=== PATIENT | male | born 1970 | race Caucasian/White ===

== ENCOUNTER 2020-10-31 10:50 | Outpatient (REF) | payer MEDICAID, SELFPAY ==
[2020-10-31 12:55] LABS: MANUAL DIFF FLAG NO
[2020-10-31 12:57] LABS: Basophils Percent Auto 0.5 % (0-2); Eosinophils Absolute Auto 0.1 X10*3/uL (0.0-0.4); Eosinophils Percent Auto 1.6 % (0-4); Hematocrit 48.3 % (42-52); Hemoglobin 16.7 g/dl (14.0-18.0); Imm Gran Abs Auto 0.02 X10*3/uL (0.00-0.03); Imm Gran Pct Auto 0.4 % (0.0-0.4); Lymphocytes Absolute Auto 1.4 X10*3/uL (1.2-4.9); Lymphocytes Percent Auto 24.5 % (20-40); Mean Corpuscular HGB Conc 34.6 g/dl (31.0-36.0); Mean Corpuscular Hemoglobin 28.6 pg (27.0-33.0); Mean Corpuscular Volume 82.7 fL (80-98); Mean Platelet Volume 11.5 fL (9.4-12.4); Monocytes Absolute Auto 0.6 X10*3/uL (0.1-1.2); Monocytes Percent Auto 10.4 % (2-11); Neutrophils Absolute Auto 3.5 X10*3/uL (2.0-8.3); Neutrophils Percent Auto 62.6 % (45-73); Platelet Count 266 X10*3/uL (160-400); Red Blood Count 5.84 X10*6/uL (4.60-5.80); Red Cell Distribution Width 13.1 % (11.0-16.0); White Blood Count 5.6 X10*3/uL (4.8-10.8)
[2020-10-31 14:04] LABS: Carbon Dioxide 26 mmol/L (22-29); Chloride 104 mmol/L (96-108); Potassium 4.7 mmol/L (3.3-5.1); Sodium 141 mmol/L (135-145)
[2020-10-31 14:05] LABS: Alanine Aminotransferase 85 U/L (0-40); Albumin Level 4.6 g/dL (3.5-5.0); Alkaline Phosphatase 65 U/L (39-117); Anion Gap 16 (12-20); Aspartate Amino Transferase 44 U/L (5-37); Bilirubin Total 0.6 mg/dL (0.0-1.0); Blood Urea Nitrogen 17 mg/dL (9-16); Calcium 9.7 mg/dL (8.4-10.2); Estimated Glomerular Filt Rate > 60; Glucose Fasting 101 mg/dL (60-99); Total Protein 7.1 g/dL (6.5-8.0)
[2020-10-31 14:25] LABS: Free T4 (Free Thyroxine) 0.97 ng/dL (0.71-1.85); Thyroid Stimulating Hormone 1.92 uIU/mL (0.32-4.0)
== END 2020-10-31 10:51 | disposition home or self-care (01) ==
LOC: HO.MANLDS 10:50
PROVIDERS: PCP Internal Medicine; Visit Provider Internal Medicine
DX: R60.0 Localized edema (principal)
CPT/HCPCS: 36415; 80053; 84439; 84443; 85025

== ENCOUNTER 2021-06-20 09:52 | Outpatient (REF) | payer MEDICAID, SELFPAY ==
[2021-06-20 11:04] LABS: Hematocrit 48.7 % (42.0-52.0); Hemoglobin 16.5 g/dl (14.0-18.0); Mean Corpuscular HGB Conc 33.9 g/dl (31.0-36.0); Mean Corpuscular Hemoglobin 27.9 pg (27.0-33.0); Mean Corpuscular Volume 82.4 fL (80.0-98.0); Mean Platelet Volume 11.3 fL (9.4-12.4); Platelet Count 249 X10*3/uL (160-400); Red Blood Count 5.91 X10*6/uL (4.60-5.80); Red Cell Distribution Width 13.1 % (11.0-16.0); White Blood Count 6.1 X10*3/uL (4.8-10.8)
[2021-06-20 11:27] LABS: Alanine Aminotransferase 58 U/L (0-40); Albumin Level 4.4 g/dL (3.5-5.0); Alkaline Phosphatase 71 U/L (39-117); Anion Gap 10 (12-20); Aspartate Amino Transferase 36 U/L (5-37); Bilirubin Total 0.8 mg/dL (0.0-1.0); Blood Urea Nitrogen 15 mg/dL (9-16); Calcium 9.5 mg/dL (8.4-10.2); Carbon Dioxide 31 mmol/L (22-29); Chloride 104 mmol/L (96-108); Cholesterol 231 mg/dL; Estimated Glomerular Filt Rate > 60; Glucose Fasting 103 mg/dL (60-99); HDL Cholesterol 32 mg/dL; LDL Cholesterol Calculated 165 mg/dl; Potassium 4.4 mmol/L (3.3-5.1); Sodium 141 mmol/L (135-145); Triglycerides 171 mg/dL
[2021-06-20 11:48] LABS: Prostate Specific Antigen 0.51 ng/mL (<0.05-4.0); Vitamin D 25-OH Total 18.4 ng/mL (>30)
== END 2021-06-20 09:53 | disposition home or self-care (01) ==
LOC: HO.MANLDS 09:52
PROVIDERS: PCP Internal Medicine; Visit Provider Internal Medicine
DX: Z12.5 Encounter for screening for malignant neoplasm of prostate (principal); I10 Essential (primary) hypertension
CPT/HCPCS: 36415; 80053; 80061; 82306; 84153; 85027

== ENCOUNTER 2022-12-04 09:57 | Outpatient (REF) | payer MEDICAID, SELFPAY ==
[2022-12-04 11:55] LABS: Estimated Average Glucose 100 mg/dL; Hemoglobin A1c % 5.1 %
[2022-12-04 13:40] LABS: Alanine Aminotransferase 45 U/L (0-40); Albumin Level 4.6 g/dL (3.5-5.0); Alkaline Phosphatase 61 U/L (39-117); Anion Gap 13 (12-20); Aspartate Amino Transferase 35 U/L (5-37); Bilirubin Total 0.9 mg/dL (0.0-1.0); Blood Urea Nitrogen 14 mg/dL (9-16); Calcium 9.7 mg/dL (8.4-10.2); Carbon Dioxide 27 mmol/L (22-29); Chloride 106 mmol/L (96-108); Cholesterol 262 mg/dL; Estimated Glomerular Filt Rate > 60; Glucose Random 91 mg/dL (60-115); HDL Cholesterol 40 mg/dL; LDL Cholesterol Calculated 188 mg/dl; Potassium 4.5 mmol/L (3.3-5.1); Sodium 141 mmol/L (135-145); Total Protein 7.1 g/dL (6.5-8.0); Triglycerides 172 mg/dL
[2022-12-04 13:56] LABS: Prostate Specific Antigen 0.56 ng/mL (<0.05-4.0)
== END 2022-12-04 09:58 | disposition home or self-care (01) ==
LOC: HO.MANLDS 09:57
PROVIDERS: Visit Provider Internal Medicine
DX: Z12.5 Encounter for screening for malignant neoplasm of prostate (principal); E78.2 Mixed hyperlipidemia; R73.01 Impaired fasting glucose
CPT/HCPCS: 36415; 80053; 80061; 83036; 84153

== ENCOUNTER 2024-09-29 18:07 | Emergency (ER) | payer MEDICAID, SELFPAY ==
--- NOTE | ~2024-09-29 | CT_ITS ---
CLINICAL HISTORY: LLQ pain, N V, hematochezia CT abdomen and pelvis with contrast Comparison: None Findings: No consolidation of the imaged bases. Steatotic change of the liver. The gallbladder is unremarkable for CT. Mild splenomegaly. The adrenal glands are normal. Pancreas is unremarkable. Multiple cystic lesions in the kidneys are too small to characterize. No hydronephrosis. Nonobstructing nephrolithiasis of the right kidney measures 6 mm. Small mesenteric and periaortic lymph nodes are nonspecific and likely reactive. No small bowel obstruction. Moderate to severe stool burden is present, including the cecum. Abrupt change in caliber about the junction of the sigmoid in the descending colon are nonspecific. Wall thickening of the distal sigmoid colon and rectum concerning for colitis and proctitis. Imaged appendix is within normal limits. No free intraperitoneal air. No drainable abscess by CT. Prostate gland is unremarkable for CT. Mild distention of the urinary bladder. Degenerative changes include the hips, SI joints, and spine with multifocal facet arthropathy. Limbus vertebrae of the L3. Vacuum disc phenomenon at L4-L5. Multiple hemangiomas including imaged thoracolumbar junction. IMPRESSION: 1. Nonobstructing nephrolithiasis of the right kidney. 2. Wall thickening of the distal large intestine concerning for distal colitis and proctitis. 3. No small bowel obstruction. This document has been electronically signed by: Casper Torres MD on 09/30/2024 00:30:35
--- NOTE | 2024-09-29 18:21 | ED.GENADULT ---
HPI - General Adult General Chief complaint: Abdominal Pain Stated complaint: L side abd pain, bloody stool Time Seen by Provider: 09/29/24 22:47 Source: patient Mode of arrival: ambulatory Limitations: no limitations History of Present Illness ED Provider: Rox Martinez NP HPI narrative: Patient is a 53-year-old male with past medical history of GERD who presents emergency department for evaluation. He reports he was out running errands today when he developed sudden onset of left lower quadrant abdominal pain. He reports that he went home afterwards tried to lie down but the pain continued. He went to the bathroom and reports that he had bright red blood from his rectum as well as mucus but denies any actual stool from the rectum. He denies any history of similar symptoms in the past. He denies use of anticoagulants. He states that he had a colonoscopy 2 years ago which was normal, he believes that there may be a cousin in the family with history of colon cancer. Additionally does state that he had a mechanical slip and fall on the ice a few days ago, he fell landing onto his left buttock. He denies having any pain afterwards in the back, hip, or even the abdomen. Is ambulatory with a steady gait, full range of motion to the hip. Related Data Previous Rx's ?Medication ?Instructions ?Recorded amoxicillin 875 mg-potassium 1 tab PO Q12H 7 days #14 tabs 09/30/24 clavulanate 125 mg tablet metronidazole 500 mg tablet 500 mg PO TID 7 days #21 tabs 09/30/24 morphine 15 mg immediate release 15 mg PO Q6H PRN pain #14 tabs 09/30/24 tablet Allergies Allergy/AdvReac Type Severity Reaction Status Date / Time No Known Allergies Allergy Verified 09/29/24 18:27 Review of Systems Review of Systems: Yes all other systems are reviewed and are negative PMFSH Past Medical History Attestation statement: The following information was validated with the patient. Source: old records reviewed Physical Exam ED Vital Signs: Vital Signs - 24 hr 09/29/24 18:22 09/29/24 23:42 09/30/24 01:10 Temperature 98.1 F 98.4 F 97.5 F Pulse Rate 88 73 72 Respiratory Rate 18 20 16 Blood Pressure 153/111 H 144/91 H 133/78 Pulse Oximetry 96 96 98 Oxygen Delivery Method Room Air Room Air Room Air 09/30/24 02:55 09/30/24 03:17 Temperature 97.7 F 97.7 F Pulse Rate 71 71 Respiratory Rate 16 16 Blood Pressure 134/81 134/81 Pulse Oximetry 95 95 Oxygen Delivery Method Room Air Room Air BMI result Body Mass Index 35.4 Appearance: Alert.?Oriented to person, place and time. No acute distress.?Normal affect.?? Neck: Normal inspection.? Neck supple.?? CVS: Heart sounds normal. Normal heart rate and rhythm.? Pulses normal.?? Respiratory: No respiratory distress.? Lung sounds clear to auscultation bilaterally?? Abdomen: Soft and non-tender. No rebound tenderness at McBurney's point. Negative psoas sign. Negative Rovsing sign. Negative Harris sign. No CVAT. Normoactive bowel sounds. No pulsatile mass.?? Skin: Skin warm and dry.? Normal skin color.? Extremities: No lower extremity edema.? Neuro: Moves all extremities spontaneously. Sensation intact bilaterally. Ambulates with normal steady gait. Course Course Course Narrative: RME, this is a rapid medical exam performed by Gil Wilson please refer to primary provider for complete H&P- 53 year old male presents for evaluation of left sided abdominal pain and bright red blood per rectum. Reports a history of hemorrhoids. He is not anticoagulated. Plan for labs Reevaluation(s) Reevaluation #1: Patient signed out to ED attending Dr. Goodman pending CT of the abdomen and pelvis Medications Administered Discontinued Medications Generic Name Dose Route Start Last Admin Trade Name Freq PRN Reason Stop Dose Admin Amoxicillin/Clavulanate Potassium 875 mg 09/30/24 02:40 09/30/24 03:08 Amoxicillin/Potassium Clav 875 Mg Tablet PO 09/30/24 02:41 875 mg ONCE ONE Administration Sodium Chloride 1,000 mls @ 999 mls/hr 09/29/24 23:15 09/30/24 00:30 Ns IV 09/30/24 00:15 Infused .Q1H1M RICCARDO Infusion Iohexol 85 ml 09/29/24 23:55 09/29/24 23:56 Iohexol 350 Mg/Ml 100 Ml Infus..Btl IV 09/29/24 23:56 85 ml ONCE ONE Administration Metronidazole 500 mg 09/30/24 02:40 09/30/24 03:08 Metronidazole 500 Mg Tablet PO 09/30/24 02:41 500 mg ONCE ONE Administration Morphine Sulfate 4 mg 09/30/24 02:40 09/30/24 03:00 Morphine Sulfate 4 Mg/Ml Cartridge IVPUSH 09/30/24 02:41 4 mg ONCE STA Administration Protocol Medical Decision Making Medical Decision Making [facility] Narrative: Patient is a 53-year-old male past medical history of GERD who presents emergency department for evaluation of left lower quadrant abdominal pain and bright red blood per rectum with mucus but no reported stool as per HPI. Denies use of anticoagulants. On my evaluation he does have some external hemorrhoids without active bleeding non thrombosed, exam was performed with ED RN Margo at bedside. Digital rectal examination is without evidence of bright red blood within the rectum, no palpable masses. He has mild left lower quadrant tenderness upon palpation. Obtaining CT of the abdomen and pelvis with IV contrast to evaluate further for possible diverticulitis, lower GIB, blunt injury from recent fall, occult stool has been sent. Reviewed serum labs obtained prior to my assumption of care; CBC is without leukocytosis, anemia, or thrombocytopenia, normal coags, no significant electrolyte derangement, no CONNOR. Minimally elevated AST/ALT 40/50 respectively he benign upper abdominal examination, normal lipase. Viral serologies are negative. 09/30/2024 at 02:41 hours, Dr. Graham Goodman's note: I assumed care of this patient from my colleague, nurse practitioner Rox Martinez at 02:00 hours pending the patient's CT scan of the abdomen pelvis IV contrast. CT scan did reveal descending colitis and proctitis. Patient also has an incidental right kidney stone. 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 I ordered morphine 4 mg IV for his pain, Augmentin 875/125 orally and Flagyl 500 mg orally. Patient was discharged home with prescription for Augmentin 875/125 q.12 hours x7 days, metronidazole 500 mg q.12 hours x7 days. He was advised to take Tylenol for pain and for pain not relieved by Tylenol he was prescribed morphine 15 mg every 6 hours as needed for pain. He was given printed and verbal instructions and discharged home. Differential Diagnosis Differential Diagnoses: The differential diagnosis associated with the presentation includes (See narrative above) Admission/Observation Consideration of admission/observation: Escalation of care including admission/observation considered (See narrative above ) Lab Data MDM Lab Attestation statement: I reviewed the patient's lab results. 09/29/24 20:10 09/29/24 20:11 Labs: Lab Results 09/29/24 09/29/24 09/29/24 Range/Units 20:10 20:11 23:32 WBC 7.0 (4.8-10.8) X10*3/uL RBC 5.83 H (4.60-5.80) X10*6/uL Hgb 16.5 (14.0-18.0) g/dl Hct 48.2 (42.0-52.0) % MCV 82.7 (80.0-98.0) fL MCH 28.3 (27.0-33.0) pg MCHC 34.2 (31.0-36.0) g/dl RDW 12.6 (11.0-16.0) % Plt Count 227 (160-400) X10*3/uL MPV 10.2 (9.4-12.4) fL Immature Gran % (Auto) 0.3 (0.0-0.4) % Neut % (Auto) 72.1 (45-73) % Lymph % (Auto) 20.4 (20-40) % Warrick % (Auto) 5.8 (2-11) % Eos % (Auto) 1.1 (0-4) % Baso % (Auto) 0.3 (0-2) % Lymph # (Auto) 1.4 (1.2-4.9) X10*3/uL Warrick # (Auto) 0.4 (0.1-1.2) X10*3/uL Eos # (Auto) 0.1 (0.0-0.4) X10*3/uL Baso # (Auto) 0.0 (0.0-0.2) X10*3/uL Abs Immat Gran (auto) 0.02 (0.00-0.03) X10*3/uL Absolute Neuts (auto) 5.1 (2.0-8.3) x10*3/uL Absolute Nucleated RBC 0.000 (0.0-0.012) X10*3/uL Nucleated RBC % (auto) 0.0 (0.0-0.2) /100WBC PT 11.5 (10.9-12.4) SEC INR 1.0 (0.9-1.1) Sodium 140 (135-145) mmol/L Potassium 4.2 (3.3-5.1) mmol/L Chloride 109 H (96-108) mmol/L Carbon Dioxide 23 (22-29) mmol/L Anion Gap 12 (12-20) BUN 14 (9-16) mg/dL Creatinine 0.91 (0.5-1.4) mg/dL Estim Creat Clear Calc 104.9 Estimated GFR > 60 Random Glucose 87 (60-115) mg/dL Calcium 9.1 D (8.4-10.2) mg/dL Total Bilirubin 0.4 (0.0-1.0) mg/dL AST 40 H (5-37) U/L ALT 50 H (0-40) U/L Alkaline Phosphatase 66 (39-117) U/L Total Protein 7.6 (6.5-8.0) g/dL Albumin 4.4 (3.5-5.0) g/dL Lipase 30 (8-78) U/L Stool Occult Blood NEGATIVE (NEGATIVE) Influenza Type A (PCR) NEGATIVE (Negative) Influenza Type B (PCR) NEGATIVE (Negative) RSV RNA Qual (PCR) NEGATIVE (Negative) SARS-CoV-2 RNA (RT-PCR) NEGATIVE (Negative) Radiology Impression Discussion of test interpretation with radiology: I have reviewed the radiologist's reading. Radiologist Impression: CT abdomen and pelvis with contrast Comparison: None Findings: No consolidation of the imaged bases. Steatotic change of the liver. The gallbladder is unremarkable for CT. Mild splenomegaly. The adrenal glands are normal. Pancreas is unremarkable. Multiple cystic lesions in the kidneys are too small to characterize. No hydronephrosis. Nonobstructing nephrolithiasis of the right kidney measures 6 mm. Small mesenteric and periaortic lymph nodes are nonspecific and likely reactive. No small bowel obstruction. Moderate to severe stool burden is present, including the cecum. Abrupt change in caliber about the junction of the sigmoid in the descending colon are nonspecific. Wall thickening of the distal sigmoid colon and rectum concerning for colitis and proctitis. Imaged appendix is within normal limits. No free intraperitoneal air. No drainable abscess by CT. Prostate gland is unremarkable for CT. Mild distention of the urinary bladder. Degenerative changes include the hips, SI joints, and spine with multifocal facet arthropathy. Limbus vertebrae of the L3. Vacuum disc phenomenon at L4-L5. Multiple hemangiomas including imaged thoracolumbar junction. IMPRESSION: 1. Nonobstructing nephrolithiasis of the right kidney. 2. Wall thickening of the distal large intestine concerning for distal colitis and proctitis. 3. No small bowel obstruction. This document has been electronically signed by: Casper Torres MD on 09/30/2024 00:30:35 Independent Historian Clinical information obtained from an independent historian. History obtained from or confirmed by: Spouse External Record Review External record reviewed: Outpatient record Discharge Plan Discharge Clinical Impression: Acute proctitis, Acute colitis Patient Disposition: Home, Self-Care Instructions: Proctitis (ED), Colitis (ED) Additional Instructions: Your blood work was unremarkable. The CT scan of your abdomen pelvis revealed colitis and proctitis which he was consistent with your symptoms. Take Augmentin (amoxicillin/clavulanate) 875/125, 1 pill every 12 hours for 7 days Take Flagyl (metronidazole) 500 mg pills, 1 pill every 3 times a day for 7 days. Take Tylenol (acetaminophen) 2 pills every 6 hours as needed for pain. For pain not relieved by Tylenol take morphine 15 mg pills, 1 pill every 6 hours as needed for pain. This medication will make you sleepy, do not drive or work while taking this medication. Morphine is a narcotic medication and can be addicting. If you are concerned about addiction you can ask the pharmacist for less pills or do not get this prescription filled. Follow-up with your doctor in 2 days. Please return to the emergency department if your symptoms get worse or if you develop any symptoms that are concerning to you. You will need a colonoscopy once ER proctitis and colitis resolves, this probably should be done in 4-6 weeks in you can discuss this with your interior plant caretaker that is going to do your upper endoscopy. I cut and paste the radiology reading at the end of this discharge instruction in you can show this to your interior plant caretaker. CT scan also revealed a right-sided kidney stone which is not causing any problems at this time but may and gave you pain in the future. CT abdomen and pelvis with contrast Comparison: None Findings: No consolidation of the imaged bases. Steatotic change of the liver. The gallbladder is unremarkable for CT. Mild splenomegaly. The adrenal glands are normal. Pancreas is unremarkable. Multiple cystic lesions in the kidneys are too small to characterize. No hydronephrosis. Nonobstructing nephrolithiasis of the right kidney measures 6 mm. Small mesenteric and periaortic lymph nodes are nonspecific and likely reactive. No small bowel obstruction. Moderate to severe stool burden is present, including the cecum. Abrupt change in caliber about the junction of the sigmoid in the descending colon are nonspecific. Wall thickening of the distal sigmoid colon and rectum concerning for colitis and proctitis. Imaged appendix is within normal limits. No free intraperitoneal air. No drainable abscess by CT. Prostate gland is unremarkable for CT. Mild distention of the urinary bladder. Degenerative changes include the hips, SI joints, and spine with multifocal facet arthropathy. Limbus vertebrae of the L3. Vacuum disc phenomenon at L4-L5. Multiple hemangiomas including imaged thoracolumbar junction. IMPRESSION: 1. Nonobstructing nephrolithiasis of the right kidney. 2. Wall thickening of the distal large intestine concerning for distal colitis and proctitis. 3. No small bowel obstruction. This document has been electronically signed by: Casper Torres MD on 09/30/2024 00:30:35 Prescriptions: New metronidazole 500 mg tablet 500 mg PO TID 7 Days Qty: 21 0RF morphine 15 mg tablet 15 mg PO Q6H PRN (Reason: pain) Qty: 14 0RF Rx Instructions: Patient may request partial fill; Partial Fill upon patient request. amoxicillin-pot clavulanate 875-125 mg tablet 1 tab PO Q12H 7 Days Qty: 14 0RF Interventions: ED Discharge Assessment Last Done: 09/30/24 03:17 Discharge Date/Time: 09/30/24 03:17 Print Language: Macanese
[2024-09-29 18:22] VITALS: BP 153/111; PULSE 88; RESP 18; TEMP 36.7; O2SAT 96; BMI 35.4
[2024-09-29 20:15] LABS: MANUAL DIFF FLAG NO
[2024-09-29 20:17] LABS: Basophils Percent Auto 0.3 % (0-2); Eosinophils Absolute Auto 0.1 X10*3/uL (0.0-0.4); Eosinophils Percent Auto 1.1 % (0-4); Hematocrit 48.2 % (42.0-52.0); Hemoglobin 16.5 g/dl (14.0-18.0); Imm Gran Abs Auto 0.02 X10*3/uL (0.00-0.03); Imm Gran Pct Auto 0.3 % (0.0-0.4); Lymphocytes Absolute Auto 1.4 X10*3/uL (1.2-4.9); Lymphocytes Percent Auto 20.4 % (20-40); Mean Corpuscular HGB Conc 34.2 g/dl (31.0-36.0); Mean Corpuscular Hemoglobin 28.3 pg (27.0-33.0); Mean Corpuscular Volume 82.7 fL (80.0-98.0); Mean Platelet Volume 10.2 fL (9.4-12.4); Monocytes Absolute Auto 0.4 X10*3/uL (0.1-1.2); Monocytes Percent Auto 5.8 % (2-11); Neutrophils Absolute Auto 5.1 x10*3/uL (2.0-8.3); Neutrophils Percent Auto 72.1 % (45-73); Platelet Count 227 X10*3/uL (160-400); Red Blood Count 5.83 X10*6/uL (4.60-5.80); Red Cell Distribution Width 12.6 % (11.0-16.0)
[2024-09-29 20:24] LABS: Prothrombin Time 11.5 SEC (10.9-12.4)
[2024-09-29 20:35] LABS: Alanine Aminotransferase 50 U/L (0-40); Albumin Level 4.4 g/dL (3.5-5.0); Alkaline Phosphatase 66 U/L (39-117); Anion Gap 12 (12-20); Aspartate Amino Transferase 40 U/L (5-37); Bilirubin Total 0.4 mg/dL (0.0-1.0); Blood Urea Nitrogen 14 mg/dL (9-16); Calcium 9.1 mg/dL (8.4-10.2); Carbon Dioxide 23 mmol/L (22-29); Chloride 109 mmol/L (96-108); Creatinine Clr Calc Pharmacy 104.9; Estimated Glomerular Filt Rate > 60; Glucose Random 87 mg/dL (60-115); Lipase 30 U/L (8-78); Potassium 4.2 mmol/L (3.3-5.1); Sodium 140 mmol/L (135-145); Total Protein 7.6 g/dL (6.5-8.0)
[2024-09-29 20:55] LABS: Influenza A PCR NEGATIVE (Negative); Influenza B PCR NEGATIVE (Negative); Resp Syncy Virus RNA Qual PCR NEGATIVE (Negative); SARS COV2 PCR INHOUSE NEGATIVE (Negative)
[2024-09-29] MEDS: 0.9 % Sodium Chloride 1,000 ML 999 ML IV (23:29)
[2024-09-29 23:37] LABS: OBS Int Ctl Valid YES; OBS1 NEGATIVE (NEGATIVE)
[2024-09-29 23:42] VITALS: BP 144/91; PULSE 73; RESP 20; TEMP 36.9; O2SAT 96
[2024-09-29] MEDS: iohexoL 350 MG/ML 100 ML INFUS..BTL 85 ML IV (23:56)
[2024-09-30 01:10] VITALS: BP 133/78; PULSE 72; RESP 16; TEMP 36.4; O2SAT 98
[2024-09-30 02:55] VITALS: BP 134/81; PULSE 71; RESP 16; TEMP 36.5; O2SAT 95
[2024-09-30] MEDS: Morphine Sulfate 4 MG/ML CARTRIDGE IVPUSH (03:00)
[2024-09-30] MEDS: metroNIDAZOLE 500 MG TABLET PO (03:08)
[2024-09-30] MEDS: Amoxicillin/Potassium Clav 875 MG TABLET PO (03:08)
[2024-09-30 03:17] VITALS: BP 134/81; PULSE 71; RESP 16; TEMP 36.5; O2SAT 95
== END 2024-09-30 03:17 | disposition home or self-care (01) ==
PROVIDERS: Nurse Practitioner Family; Physician Assistant; Emergency Provider Emergency Medicine Emergency Medical Services; PCP Internal Medicine
DX: K52.9 Noninfective gastroenteritis and colitis, unspecified (principal); K62.89 Other specified diseases of anus and rectum; N20.0 Calculus of kidney; R10.32 Left lower quadrant pain; K62.5 Hemorrhage of anus and rectum; Z03.818 Encounter for observation for suspected exposure to other biological agents ruled out
CPT/HCPCS: 0241U; 74177; 80053; 82272; 83690; 85025; 85610; 96361; 96374; 99283; 99284; J2270; Q9967

== ENCOUNTER → 2024-09-29 23:05 | Outpatient (BNV) | payer MEDICAID, SELFPAY | PROVIDERS: Emergency Provider Emergency Medicine Emergency Medical Services; PCP Internal Medicine; Visit Provider Radiology Neuroradiology | DX: R10.32 Left lower quadrant pain (principal); R11.2 Nausea with vomiting, unspecified; K62.5 Hemorrhage of anus and rectum | CPT/HCPCS: 74177 ==

== ENCOUNTER 2025-02-08 09:34 | Outpatient (REF) | payer MEDICAID, SELFPAY ==
--- OUTSIDE RECORDS SUMMARY | 2025-02-08 10:19 | XMS_ITS | Data Portability ---
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 REVIEW OF PRIOR EXTERNAL NOTES/RESULTS, ORDERING OF TEST(S) CATEGORY 2. 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) MDM MODERATE MUST MEET 2 OUT OF 3 ELEMENTS: PROBLEMS, DATA OR RISK ELEMENT 1: PROBLEMS ADDRESSED 1 OR MORE CHRONIC ILLNESS WITH EXACERBATION OR 2 OR MORE STABLE CHRONIC ILLNESSES OR 1 UNDIAGNOSED NEW PROBLEM OR 1 ACUTE ILLNESS W/SYMPTOMS OR 1 ACUTE COMPLICATED INJURY ELEMENT 2: DATA MUST MEET 1 OF 3 CATEGORIES CATEGORY 1: REVIEW OF PRIOR EXTERNAL NOTES, REVIEW OF RESULTS, ORDERING OF EACH TEST, ASSESSMENT REQUIRING INDEPENDENT HISTORIAN OR CATEGORY 2: INDEPENDENT INTERPRETATION OF TESTS BY ANOTHER PHYSICIAN OR SPECIALIST OR CATEGORY 3: DISCUSSION OF MGT OR TEST INTERPRETATION W/EXTERNAL PHYSICIAN OR SPECIALIST ELEMENT 3: RISK RISK OF COMPLICATIONS AND/OR MORBIDITY OR MORTALITY OF PATIENT MANAGEMENT PROVIDER MUST THOROUGHLY DOCUMENT EACH ELEMENT THAT IS COVERED Not available 02/04/2025 09:33:12 Plan of Treatment Reminders Order Date Submit Date Provider Last Modified By Organization Details Last Modified Time Details Appointments None recorded. Lab lipid panel, blood 2024 [facility], [address] [place] [address], [address], 5 09:38:58 CMP, serum or plasma 2024 [facility], [address] [place] [address], [address], 5 09:38:58 CBC w/ auto diff 2024 [facility], [address] [place] [address], [address], 5 09:38:57 PSA, serum or plasma 2024 025 [facility], [address] [place] [address], [address], 5 09:38:57 vitamin D, 25-hydroxy , total, serum 2024 [facility], [address] [place] [address], [address], 5 09:38:57 testostero ne, total, serum 2024 [facility], [address] [place] [address], [address], 5 09:38:58 Referral dermatolog ist referral 2024 [id number] [email or web address] [facility], [address], [place], [address], 5 09:43:10 gastroente rologist referral - needs alt to the normal prep due to issues swallowing 2024 [id number] [email or web address] Jeb Roberts MD, [address], [place], [address], 08:29:06 gastroente rologist referral 2024 [facility], [address], [place], [address], 09:19:17 Procedures None recorded. Surgeries None recorded. Imaging PFT, complete 2024 [facility], [address], [place], [address], 08:41:37 Medication Orders clobetasol 0.05 % scalp solution 2024 [facility], [address] [place] [place], [place], [id number], 09:37:48 clonazepam 1 mg tablet 2024 [facility], [address] [place], [place], [id number], 15:57:17 clonazepam 1 mg tablet 2024 [facility]16925, [address] [place] [place], [place], [id number], 11:24:30 zolpidem 5 mg tablet 2024 [facility] #06300, [address] [place], [place], [id number], 5 15:56:00 Bactrim DS 800 mg-160 mg tablet 2024 [facility], [address] [place], [place], [id number], 5 12:24:56 sucralfate 100 mg/mL oral suspension 2024 025 [facility]33969, [address] [place] [place], [place], [id number], 5 09:33:57 benzonatat e 200 mg capsule 2024 025 [facility] #78309, [address] [place], [place], [id number], 09:36:10 Patient TargetsNo targets recorded. Patient Instructions Encounter Date Encounter Id Patient Instructions Last Modified By Organization Details Last Modified Time 08/13/2024 [id number] cough: care instructions Not available 08/13/2024 16:02:51 02/04/2025 [id number] actinic keratosis: care instructions Not available 02/04/2025 09:37:37 Reason for Referral Inventory Control Assistant Referral for Zenker's diverticulum ?zenker diverticulum, having hoarsness, GERD, chest pressure, and epigastric pain Referring Physician: Karen Hill, Internal Medicine, Encounter Date: 09/13/2024 Inventory Control Assistant Referral for Colitis recommended fu colonscopy needs alt to the normal prep due to issues swallowing Referring Physician: Karne Hill, Internal Medicine, Encounter Date: 10/05/2024 Avionics Supervisor Referral for A ctinic keratosis irregular lesion right forearm / scalp dermatitis Referring Physician: Reymundo Salazar, Internal Medicine, Encounter Date: 02/04/2025 Results Created Date Observation Date Name Description Value Unit Range Abnormal Flag Note LastModifiedBy Organization Detail LastModifiedTime 09/30/1909/29/2024 CT, abdom en + pelvi s, w/o contr ast No observ ation record ed. [facility] (Medical Records) [address] [place] [address], [address], 09/30/2024 12:03:02 Result Notes None recorded. Problems Name Problem SNOMED Code Status Onset Date Resolution Date Notes Provider Name and Address Organization Details Recorded Time Impaired fasting glycemia 349311233 Active 2017 Not Available [facility] 3 11:21:23 Hyperlipi demia 88952138 Active 2017 Not Available [facility] 3 11:21:23 Gastroeso phageal reflux disease 071428060 Active 2017 Not Available [facility] 3 11:21:23 Essential hypertens ion 02008185 Active 2017 Not Available [facility] 3 11:21:23 Osteoarth ritis of shoulder region 92735250 Active 2017 Not Available [facility] 3 11:21:23 Hiatal hernia 56519599 Active 2020 Not Available [facility] 3 11:21:23 Pityriasi s capitis 869117633 Active 2021 [facility] Available [facility] 3 11:21:23 Multiple benign melanocyt ic nevi 065023677 Active 2021 Not Available [facility] 3 11:21:23 Mood disorder 97383766 Active 2021 Not Available [facility] 3 11:21:23 Degenerat ion of lumbar intervert ebral disc 03948020 Active 2021 Not Available [facility] 3 11:21:23 Genital herpes simplex 34594576 Active 2021 Not Available [facility] 3 11:21:23 Allergic rhinitis 06011112 Active 2022 Not Available [facility] 3 11:21:23 Postviral cough 921096498 Active 2022 Not Available [facility] 3 11:21:23 Hyperchol esterolem ia 55743542 Active 2022 Not Available [facility] 3 11:21:23 Zenker's diverticu lum 191369064 Active 2022 Not Available [facility] 3 11:21:23 Kidney stone 09417250 Active 2022 Not Available [facility] 3 11:21:23 Pain in right foot 096133608913 107 Active 2023 CAROL CHACON [address] [place], [address], [facility] 4 14:00:51 Twitching eye 323233336 Active 2023 CAROL CHACON [address] [place], [address], [facility] 4 14:09:27 Pain of bilateral knee joints 271341315329 104 Active 2023 CAROL CHACON [address] [place] [address], [address], [facility] 4 11:43:51 Acute sinusitis 85971288 Active 2023 CAROL CHACON [address] [place] [address], [address], [facility] 4 12:17:25 Seasonal allergic rhinitis 291270427 Active 2023 CAROL CHACON [address] [place] [address], [address], [facility] 4 10:31:18 Gastroeso phageal reflux disease without esophagit is 645180351 Active 2023 CAROL CHACON [address] [place] [address], [address], [facility] 4 10:34:42 Laryngoph aryngeal reflux 482204608 Active 2023 CAROL CHACON [address] [place] [address], [address], [facility] 4 10:34:58 Interstit ial lung disease 378459729 Active 2023 CAROL CHACON [address] [place], [address], [facility] 4 10:38:15 Esophagea l diverticu lum 953098145 Active 2024 Reymundo Salazar, DO [address] [place] [address], [address], [facility] 5 15:58:47 Cough 39478481 Active 2024 Reymundo Salazar, DO [address] [place] [address], [address], [facility] 5 16:02:16 Small bowel bacterial overgrowt h syndrome 282294846 Active 2024 CAROL CHACON [address] [place] [address], [address], [facility] 5 11:14:55 Insomnia 372886450 Active 2024 CAROL CHACON [address] [place] [address], [address], [facility] 5 11:15:17 Colitis 17882296 Active 2024 CAROL CHACON [address] [place] [address], [address], [facility] 5 08:48:43 Proctitis 6763676 Active 2024 CAROL CHACON [address] [place] [address], [address], [facility] 5 08:48:51 Hematoche rolan 195515442 Active 2024 CAROL CHACON [address] [place] [address], [address], [facility] 5 08:48:59 Actinic keratosis 621933715 Active 2024 Reymundo aSlazar DO [address] [place] [address], [address], [facility] 5 09:30:04 Seborrhei c dermatiti s of scalp 905215481 Active 2024 Reymundo Salazar DO [address] [place] [address], [address], [facility] 09:31:43 Problem Notes None recorded. Procedures Surgical History Date Name Laterality Status Provider Name and Address Organization Details Recorded Time 02/04/20 25 Colonoscopy completed Reymundo Salazar DO [address] [place], [address], [facility] 02/03/2025 18:15:35 07/22/20 23 total shoulder replacement completed CAROL CHACON [address] [place], [address], [facility] 08/20/2023 10:36:58 08/11/19 15 Shoulder joint surgery completed Tosin Funez NP, S [address] [place], [address], [facility] 04/01/2018 10:19:57 Imaging Results None recorded. Procedure Notes None recorded. Medical Equipment None Reported. Allergies No known drug allergies Medications Name Sig Start Date Stop Date Status Note LastModified by Organization Details LastModified Time amoxicillin 500 mg capsule TAKE 4 CAPSULES BY MOUTH 1 HOUR BEFORE DENTAL PROCEDURE DIRECTED 08/13 completed Not Available Not Available Not Available budesonide 32 mcg/actuati on nasal spray SHAKE LIQUID AND USE 1 SPRAY IN EACH NOSTRIL EVERY DAY NEEDED 02/04 completed Not Available Not Available Not Available atorvastati n 20 mg tablet Take 1 tablet every day by oral route. 07/21 completed Not Available Not Available Not Available Nizoral A-D 1 % shampoo APPLY SHAMPOO BY TOPICAL ROUTE EVERY 3 DAYS LATHER, RINSE, AND REPEAT 2021 active Not Available Not Available Not Avai lable lidocaine 4 % topical patch Apply 1 patch 3 times a day by topical route as needed for 30 days. 05/26 completed Not Available Not Available Not Available cetirizine 10 mg tablet 04/01 completed Not Available Not Available Not Available atorvastati n 10 mg tablet Take 1 tablet every day by oral route for 30 days. 10/31 completed Not Available Not Available Not Available azithromyci n 250 mg tablet TAKE 2 TABLETS (500 MG) BY ORAL ROUTE ONCE DAILY FOR 1 DAY THEN 1 TABLET (250 MG) BY ORAL ROUTE ONCE DAILY FOR 4 DAYS 06/09 completed Not Available Not Available Not Available benzonatate 200 mg capsule Take 1 capsule 3 times a day by oral route for 20 days. 02/04 completed Not Available Not Available Not Available sucralfate 100 mg/mL oral suspension SHAKE LIQUID AND TAKE 10 ML BY MOUTH FOUR TIMES DAILY NEEDED 02/04 completed Not Available Not Available Not Available sucralfate 1 gram tablet TAKE 1 TABLET BY MOUTH TWICE DAILY DIRECTED 02/04 completed Not Available Not Available Not Available famotidine 40 mg tablet TAKE 2 TABLETS BY MOUTH EVERY DAY AT BEDTIME 11/06 completed Not Available Not Available Not Available Medrol (Tom) 4 mg tablets in a dose pack as directed 06/09 completed Not Available Not Available Not Available sertraline 100 mg tablet TK 2 TS PO QAM 10/31 completed Not Available Not Available Not Available clonazepam 1 mg tablet TAKE 1 TABLET BY MOUTH TWICE DAILY NEEDED active Not Available Not Available No t Available metronidazo le 500 mg tablet TAKE 1 TABLET BY MOUTH THREE TIMES DAILY FOR 7 DAYS 02/04 completed Not Available Not Available Not Available valacyclovi r 500 mg tablet TAKE 1 TABLET BY MOUTH EVERY DAY FOR 10 DAYS 05/26 completed Not Available Not Available Not Available ciprofloxac in 500 mg tablet Take 1 tablet every 12 hours by oral route for 10 days. 10/18 completed Not Available Not Available Not Available sulfamethox azole 800 mg-trimetho prim 160 mg tablet TAKE 1 TABLET BY MOUTH EVERY 12 HOURS FOR 7 DAYS 10/05 completed Not Available Not Available Not Available omeprazole 40 mg capsule,del ayed release TAKE 1 CAPSULE BY MOUTH TWICE DAILY active Not Available Not Available No t Available tramadol 50 mg tablet 05/26 completed Not Available Not Available Not Available amoxicillin 500 mg tablet TAKE 1 TABLET BY MOUTH EVERY 8 HOURS 05/26 completed Not Available Not Available Not Available ondansetron 8 mg disintegrat ing tablet Place 1 tablet twice a day by transling ual route as needed for 10 days. 02/04 completed Not Available Not Available Not Available pantoprazol e 20 mg tablet,peyman yed release TAKE 1 TABLET BY MOUTH TWICE DAILY 02/04 completed Not Available Not Available Not Available oxycodone-a cetaminophe n 5 mg-325 mg tablet TAKE 1 TO 2 TABLETS BY MOUTH EVERY 6 HOURS NEEDED FOR PAIN 08/20 completed Not Available Not Available Not Available ofloxacin 0.3 % ear drops INSTILL 5 DROPS TO LEFT EAR TWICE DAILY FOR 7 DAYS 02/04 completed Not Available Not Available Not Available famotidine 20 mg tablet TAKE 1 TABLET BY MOUTH EVERY DAY EVERY NIGHT AT BEDTIME 02/16 completed Not Available Not Available Not Available methocarbam ol 750 mg tablet 04/03 completed Not Available Not Available Not Available tamsulosin 0.4 mg capsule TAKE 1 CAPSULE BY MOUTH EVERY DAY active Not Available Not Available No t Available baclofen 10 mg tablet TAKE 1 TABLET BY MOUTH THREE TIMES DAILY NEEDED 02/04 completed Not Available Not Available Not Available benzonatate 100 mg capsule 06/15 completed Not Available Not Available Not Available cephalexin 500 mg capsule TK ONE C PO TID 06/15 completed Not Available Not Available Not Available triamcinolo ne acetonide 55 mcg nasal spray aerosol [place] 2 sprays every day by intranasa l route as directed for 30 days. 2023 active Not Available Not Available Not Avai lable omeprazole 20 mg capsule,del ayed release TAKE 1 CAPSULE BY MOUTH TWICE DAILY 08/20 completed Not Available Not Available Not Available diclofenac sodium 75 mg tablet,peyman yed release TAKE 1 TABLET BY MOUTH TWICE DAILY NEEDED active Not Available Not Available No t Available montelukast 10 mg tablet TAKE 1 TABLET BY MOUTH EVERY DAY DIRECTED active Not Available Not Available No t Available zolpidem 5 mg tablet TAKE 2 TABLETS BY MOUTH EVERY DAY AT BEDTIME FOR 14 DAYS 09/24 completed Not Available Not Available Not Available furosemide 20 mg tablet TAKE 1 TABLET BY MOUTH EVERY DAY 05/26 completed PRN Not Available Not Available Not Available azelastine 137 mcg (0.1 %) nasal spray USE 2 SPRAYS IN EACH NOSTRIL TWICE DAILY DIRECTED 08/20 completed Not Available Not Available Not Available morphine 15 mg immediate release tablet TAKE 1 TABLET BY MOUTH EVERY 6 HOURS NEEDED FOR PAIN 02/04 completed Not Available Not Available Not Available clobetasol 0.05 % scalp solution APPLY TO THE AFFECTED SCALP AREA BY TOPICAL ROUTE 2 TIMES PER DAY IN THE MORNING AND EVENING 2024 active Not Available Not Available Not Avjoy lowry ondansetron 4 mg disintegrat ing tablet 08/20 completed Not Available Not Available Not Available loratadine 10 mg tablet TAKE 1 TABLET BY MOUTH EVERY DAY active Not Available Not Available No t Available aloe vera 25 mg capsule Take 1 capsule by oral route before meal(s) for 30 days. 02/16 completed Not Available Not Available Not Available naproxen 500 mg tablet 05/26 completed Not Available Not Available Not Available metoclopram evan 10 mg tablet TAKE 1 TABLET BY MOUTH DAILY AT BEDTIME NEEDED FOR NAUSEA OR VOMITING 02/04 completed Not Available Not Available Not Available amoxicillin 875 mg-potassiu m clavulanate 125 mg tablet TAKE 1 TABLET BY MOUTH EVERY 12 HOURS FOR 7 DAYS 02/04 completed Not Available Not Available Not Available oxycodone 5 mg tablet TAKE 1 TO 2 TABLETS BY MOUTH EVERY 4 HOURS NEEDED FOR MODERATE PAIN 02/20 completed Not Available Not Available Not Available chlorhexidi ne gluconate 0.12 % mouthwash 07/13 completed Not Available Not Available Not Available Advil 4 tablets bid 10/31 completed Not Available Not Available Not Available gabapentin once or twice a day 10/31 completed Not Available Not Available Not Available ProAir HFA 90 mcg/actuati on aerosol inhaler INHALE 2 PUFFS INTO THE LUNGS EVERY 6 HOURS NEEDED FOR WHEEZING 06/15 completed Not Available Not Available Not Available Vitals Date Recorded Body height Body mass index (BMI) Body weight Heart rate Oxygen saturation Oxygen saturation in Arterial blood by Pulse oximetry Systolic blood pressure Diastolic blood pressure Provider Name and Address Organization Details Last Updated DateTime 5 167.64 cm 35.5 kg/m2 05542.3 2 g 85 /min 97 % 97 % 140 mm[Hg] 80 mm[Hg] Rea [facility] 5 15:30:31 Date Recorded Body height Body mass index (BMI) Body weight Heart rate Oxygen saturation Oxygen saturation in Arterial blood by Pulse oximetry Systolic blood pressure Diastolic blood pressure Provider Name and Address Organization Details Last Updated DateTime 5 167.64 cm 35.8 kg/m2 513136. 15 g 79 /min 97 % 97 % 138 mm[Hg] 88 mm[Hg] Mariola Jordan [facility] 5 10:54:44 Date Recorded Body height Body mass index (BMI) Body weight Heart rate Oxygen saturation Oxygen saturation in Arterial blood by Pulse oximetry Systolic blood pressure Diastolic blood pressure Provider Name and Address Organization Details Last Updated DateTime 5 167.64 cm 36.1 kg/m2 445115. 54 g 110 /min 95 % 95 % 144 mm[Hg] 94 mm[Hg] Mariola Jordan [facility] 5 15:35:30 Date Recorded Body height Body mass index (BMI) Body weight Heart rate Oxygen saturation Oxygen saturation in Arterial blood by Pulse oximetry Systolic blood pressure Diastolic blood pressure Provider Name and Address Organization Details Last Updated DateTime 5 167.64 cm 36.1 kg/m2 788077. 89 g 104 /min 92 % 92 % 128 mm[Hg] 84 mm[Hg] Mariola [facility] 5 12:04:41 Date Recorded Body height Body mass index (BMI) Body weight Heart rate Oxygen saturation Oxygen saturation in Arterial blood by Pulse oximetry Systolic blood pressure Diastolic blood pressure Provider Name and Address Organization Details Last Updated DateTime 5 167.64 cm 36 kg/m2 262920. 1 g 93 /min 98 % 98 % 140 mm[Hg] 80 mm[Hg] Rea Saini [facility] 5 09:22:56 Social History Question Answer Notes LastModified by Organizat ion Details LastModified Time Tobacco Smoking Status Never Smoker Not Available [facility] 06/13/2020 03:36:24 What Was The Date Of Your Most Recent Tobacco Screening? 02/04/2025 Information not available 02/04/2025 Sex: Unknown Functional Status Question Answer Note LastModified by Organization D etails LastModified Time Do you or have you ever used any other forms of tobacco or nicotine? No [email or web address] Information not available 12/10/2021 Mental Status None recorded. Family History Relationship Description Onset Age of this Age Resolved Age Notes LastModified by Organization Details LastModified Time Father No current problems or disability kayla Not available 04/01 10:20:32 Mother No current problems or disability kayla Not available 04/01 10:20:32 Medical History No medical history recorded. Immunizations Vaccine Type Date Status Note Provider Nam e and Address Organization Details Recorded Time Tdap 7 completed Jade niño [facility] 02/13/2021 12:06:29 COVID-19, mRNA, LNP-S, PF, 30 mcg/0.3 mL dose 1 completed Jade niño [facility] 02/13/2021 12:06:46 COVID-19, mRNA, LNP-S, PF, 30 mcg/0.3 mL dose 1 completed Jade niño [facility] 02/13/2021 12:06:56 COVID-19, mRNA, LNP-S, PF, 30 mcg/0.3 mL dose 1 [facility] 13:52:08 Influenza, split virus, quadrivalent, preservative 2 completed Nicholas Salazar [facility] 04/05/2022 11:43:12 COVID-19, mRNA, LNP-S, PF, 30 mcg/0.3 mL dose 2 completed Nicholas Salazar [facility] 04/05/2022 11:43:24 influenza, unspecified formulation 3 completed Nicholsa Salazar [facility] 07/01/2023 11:33:01 Influenza, split virus, quadrivalent, preservative 8 completed Jasmine [facility] 07/27/2018 14:36:12 Past Encounters Encounter ID Performer Location Encounter Start Date Encounter Closed Date Diagnosis/Indication Diagnosis SNOMED-CT Code Diagnosis ICD10 Code Diagnosis Note [id number] Reymundo Salazar DO [facility] [address] [facility] [address] 04/01/2018 10:00:23 04/01/2018 12:03:35 Hyperlipidemia 15054803 E78.2 Gastroesop hageal reflux disease 608278985 K21.9 stable Strain of abdominal muscle 076377068 S39.011A Pain of ri ght shoulder joint 4671699954 5827744 M25.511 [id number] Reymundo Salazar [facility] [address] [facility], [place] [address] 06/24/2018 10:16:17 06/24/2018 16:57:42 Hyperlipidemia 98378314 E78.2 Pt wants to recheck levels to see if diet had improved numbers Essential hypertension 80090774 I10 Carpal alfonzo brayan syndrome 96023034 G56.03 Knee pain 08069101 M25.5 69 to obtain notes from previous ortho visits [id number] Reymundo Salazar [facility] [address] [facility], [place] [address] 07/27/2018 14:30:28 07/27/2018 15:51:48 Mood disorder 70274290 F39 will cont the sertraline of 100mg and will refer to dilan tidwell Gastroesop hageal reflux disease 753332223 K21.9 cont omeprazole Osteoarthr itis of shoulder region 04746024 M19.019 has evid of endstage joint disease will require a joint replacemen t Essential hypertension 12910113 I10 [place] [id number] Reymundo Salazar [facility] [address] [facility], [place] [address] 07/21/2019 14:50:04 07/21/2019 15:48:42 Acute low back pain 101194047 M54.5 Inguinal pain 843709089 R10.2 Pain in testicle 4106779 9 N50.819 Mood disorder 53691291 F 40 takes sertraline Orchitis a nd epididymitis 576892177 N45.3 [id number] Reymundo Salazar [facility] [address] [facility] [address] 10/19/2019 10:58:51 10/19/2019 11:28:19 Gastroesophageal reflux disease 126927554 K21.9 cont omeprazole Adult heal th examination 825523205 Z00.00 stable but certainly starting to show the effects of arthritic change [id number] Reymundo Salazar [facility] Internal [facility] [address] [facility],[place] [address] 10/31/2020 10:19:04 10/31/2020 13:40:41 Edema of lower extremity 728908038 R60.0 will fu with US duplex venous, may also need arterial US will fu with patient after test [id number] Reymundo Salazar [facility] Internal [facility] [address] [facility],[place] [address] 02/20/2021 15:44:46 02/20/2021 16:06:55 Seborrheic keratosis 395289276 L82.1 discussed with patientkno ws what signs to look out for Essential hypertension 79137952 I10 discussed BPwill fu in 3 mo [id number] Reymundo Salazar [facility] Internal Medicine [address] [facility] [address],[place] [address] 06/15/2021 15:45:21 06/15/2021 16:46:43 Essential hypertension 02860544 I10 stable and doing okwill not change any med right now Gastroesop hageal reflux disease 350729595 K21.9 cont omeprazole and is good as long as he takes has a known hiatal hernia Osteoarthr itis of shoulder region 03570529 M19.019 following the surgery he is in a lot of discomfort but has great mobility surg was 6 mo agoand he is better with flexibilit y has a follow up Mood disorder 88542539 F 39 will cont the sertraline of 100mg and will refer to dilan tidwell [id number] Reymundo Salazar [facility] Internal Medicine [address] [facility] [address],[place] [address] 07/13/2021 14:29:47 07/13/2021 15:37:07 Osteoarthritis of shoulder region 75596862 M19.019 following the surgery he is in a lot of discomfort but has great mobility surg was 6 mo agoand he is better with flexibilit y has a follow up Essential hypertension 51105885 I10 stable and doing okwill not change any med right now Gastroesop hageal reflux disease 215947228 K21.9 cont omeprazole and is good as long as he takes has a known hiatal hernia Impaired f asting glycemia 448900221 R73.01 we will be checking lab Gastro-eso phageal reflux disease with esophagitis 575137596 K21.00 needs endoscopy chronic symptomati c gerd despite appropriat e treatment [id number] Reymundo Salazar DO [facility] Internal Medicine [address] [facility] [address],[place] [address] 12/10/2021 09:32:10 12/11/2021 16:38:05 Essential hypertension 64914022 I10 BP is excellent Impaired f asting glycemia 489084425 R73.01 last check was normal Gastroesop hageal reflux disease 615414697 K21.9 stable on medication Multiple b enign melanocytic nevi 949620243 D22.5 will fu with dermatolog y Mood disorder 04917209 F 31.11 stable per patient [id number] CAROL CHACON [facility] Internal Medicine [address] [facility] [address] [address] 04/03/2022 14:40:53 04/03/2022 15:23:38 Degeneration of lumbar intervertebral disc 52340863 M51.36 will fu with PT therapy Genital he rpes simplex 63982657 A60.02 will start back on valtrex [id number] Reymundo Salazar [facility] Internal [facility] [address] [facility] [address],[place] [address] 11/06/2022 13:44:31 11/06/2022 14:33:33 Mood disorder 32982465 F31.11 will cont the sertraline of 100mg and will refer to dilan tidwell Hyperlipidemia 66266140 E78.2 Impaired f asting glycemia 787953578 R73.01 we will be checking lab Screening for malignant neoplasm of colon 068288995 Z12.11 already done Essential hypertension 53386261 I10 stable and doing okwill not change any med right now Allergic rhinitis 710128 04 J30.9 now starting with symptoms again Degenerati on of lumbar intervertebral disc 30025846 M51.36 doing great with the combo of meds Postviral cough 09517372 4 R05.3 will use tessalon [id number] Reymundo Salazar [facility] Internal Medicine [address] [facility],[place] [address] 05/26/2023 13:46:19 05/27/2023 13:35:21 Zenker's diverticulum 258948415 K22.5 will send referral Kidney stone 60673313 N2 0.0 cont with lemon water and start on flomax [id number] Reymundo Salazar [facility] Internal Medicine [address] [facility],[place] [address] 08/20/2023 10:12:59 08/20/2023 14:04:59 Osteoarthritis of shoulder region 20606998 M19.011 written out in his DTA physical Hiatal hernia 29845433 K 44.9 will continue to work with GI Gastroesop hageal reflux disease 222586060 K21.9 stable on medication Zenker's diverticulum 39 6416282 K22.5 watch and wait Mood disorder 54033521 F 34.89 stable per patient Mood disorder 91089241 F 31.11 stable per patient [id number] Reymundo Salazar [facility] Internal Medicine [address] [facility],[place] [address] 10/10/2023 13:45:41 10/10/2023 15:34:22 Pain in right foot 2196100898 72714 M79.671 right foot pain, ventral side has a noted lump?cyst vs calcium deposit vs bone spur Twitching eye 023372842 H55.89 has f/u with resolution specialist [id number] Reymundo Salazar [facility] Internal Medicine [address] [facility],[place] [address] 02/17/2024 11:23:03 02/17/2024 12:04:13 Depression screening 724739078 Z13.31 negative Pain of bi lateral knee joints 2495039294 64211 M25.561 will set up with [facility] for consult [id number] Reymundo Salazar [facility] Internal Medicine [address] [facility],[place] [address] 06/09/2024 10:13:17 06/09/2024 10:46:32 Seasonal allergic rhinitis 144695972 J30.2 start on triamcinol one Gastroesop hageal reflux disease without esophagitis 131492714 K21.9 gont PPI Laryngopha ryngeal reflux 432472762 K21.9 cont the anti-hista mine and start the singulair Interstiti al lung disease 697532112 J84.[address] as well to assess lungs [id number] Reymundo Salazar, [facility] Internal Medicine [address] [facility],[place] [address] 06/28/2024 16:14:47 06/28/2024 16:51:03 Essential hypertension 94857383 I10 stable and doing okwill not change any med right now Hypercholesterolemia 136 32030 E78.00 will have to rechk Laryngopha ryngeal reflux 525206367 K21.9 we will need to gi e him am adquate dose consider new once a day med if helpful Zenker's diverticulum 39 4317069 K22.5 we will try to treat as a laryngeal reflux and see if this works if not then surgery is the only other alternativ e and we will refer to [place] [id number] Reymundo Salazar [facility] Medicine [address] [facility],[place] [address] 07/12/2024 11:45:26 07/12/2024 13:47:50 Seasonal allergic rhinitis 298590904 J30.2 switch to budesonide spray as alternativ e Zenker's diverticulum 39 6804142 K22.5 watch and wait Hiatal hernia 42515064 K 44.9 will continue to work with GI [id number] Reymundo Salazar [facility] Internal Medicine [address] [facility],[place] [address] 08/13/2024 15:22:16 08/13/2024 16:06:44 Esophageal diverticulum 555781885 K22.5 we south l refer to the [facility] esoph program Cough 68572365 R05.9 [id number] Reymundo Salazar [facility] Internal Medicine [address] [facility] [address] 09/13/2024 10:46:07 09/13/2024 11:44:05 Mood disorder 37723615 F31.11 stable per patient Interstiti al lung disease 049677852 J84.89 check intergrity of his lungs Zenker's diverticulum 39 2240224 K22.5 second opinion gastro, Adrian luis had no options for patient Gastroesop hageal reflux disease 312247635 K21.9 stable on medication Small primo l bacterial overgrowth syndrome 553548914 A04.8 will set up with bactrim Insomnia 248368611 G47.0 9 start on medication , will take half of one at a time and see what works and doesn't for the patienthas n't slept for more than 1 to 2 hr at a time Laryngopha ryngeal reflux 937414609 K21.9 adding back sulcralfat e [id number] Reymundo Salazar [facility] Medicine [address] [facility],[place] [address] 09/24/2024 15:23:00 09/24/2024 16:02:59 Insomnia 100839612 G47.09 start on medication , will take half of one at a time and see what works and doesn't for the patienthas n't slept for more than 1 to 2 hr at a time Gastroesop hageal reflux disease 780513538 K21.9 stable on medication [id number] Reymundo Salazar [facility] [address] [facility],[place] [address] 10/05/2024 11:59:22 10/05/2024 12:53:18 Colitis 04923499 K51.30 cont rest of abxhas f/u with GI to discuss repeat colonoscop y Proctitis 5266819 K62.89 cont rest of abx Hematochezia 747221298 K 92.1 resolving Fall W19.XXXA stable now [id number] Reymundo Salazar [facility] [address] [facility],[place] [address] 02/04/2025 09:13:15 02/04/2025 09:43:10 Depression screening 522048600 Z13.31 neg Essential hypertension 29993028 I10 stable and doing okwill not change any med right now Hyperlipidemia 25709133 E78.2 Actinic keratosis 576026 007 L57.0 Seborrheic dermatitis of scalp 006420924 L21.9 Health Concerns Section Related Observation LastModified by Organization Detai ls LastModified Time None Recorded Concern Status LastModified by Organization Details LastModified Time None Recorded Advance Directives Directive None Recorded Payers Insurance Date Sequence Insurance Name Policy Number Policy Hartmann Covered Member ID Hartmann Member ID Guarantor Name 06/09/2024 1 [place] PRIOR TO 2022 - [facility] (MEDICAID) Kevin Grimaldo [id number] Kevin Grimaldo 04/01/2018 1 *SELF PAY* Sh awn Grimaldo 10/12/2024 1 [place] [facility] Kevin Grimaldo [id number] Kevin Grimaldo 02/04/2025 1 [place] [facility] PLAN Kevin Grimaldo [id number] Kevin Grimaldo 02/04/2025 1 [place] [facility] Kevin Grimaldo [id number] Kevin Grimaldo Notes Date Note Type Note Provider Name and Address Organization Details Recorded Time 08/13/19 25 text/htm l here for rechk and is still having a lot of discomfort and coughing despite high doseomeprazole unfortunately none of the conserv tx is not helpful and we have not been able to impact these symptoms Reymundo Salazar, [address] [facility], [place], [address], [facility] 08/13/2024 16:03:14 09/13/19 25 text/htm l f/u GERD/throat problems the patient reports that he is having increased symptoms with the GERD/hoarseness/chest pressureconstantly clearing his throat and coughingthe patient reports that it has been causing him significant loss of sleep due to thisonly averaging 1 hr - 2 hr recommended second opinion with Eddy Avelar send at referral restart the sucralfate as an oral solution instead of an oraltrial a course of bactrim for possible SIBO? possible combination of the LPR and GERD recommended sleeping upright, using the recliner CAROL CHACON [address] [place], [address], [facility] Internal Medicine 09/13/2024 11:33:01 09/24/19 25 text/htm l f/u 2 weeks the patient was able to see Gastroenterology, has endoscope scheduled at the end of the monthdid recommended new fruit picker machine operator, possible sinus component but ruled out by ENT here already given a name of an alternative fruit picker machine operator to look intoGI will f/u with patient about possible second opinion with pulmonology on at [place] the patient reports that his symptoms are about the samehe is sleeping better though, getting more sleep can cont the klonapin which is helping андрейien didn't help, taken off her med list CAROL CHACON [address] [place], [address], [facility] Internal Medicine 09/24/2024 16:00:58 10/05/19 25 text/htm l ER f/u patient presented to ER with sudden onset LLQ pain and had bright red blood in his stool when he has a bowel movementdoes note he had mostly mucus and blood being produced from his rectumrecent colonoscopy 2 years ago was normal, has been seeing GI pretty consistently for his GERD issue and nothing has been found that was new or acute CT revealed colitis and proctitis explaining his symptoms, he was started on augmentin and metronidazole to continue at home with as needed APAPfor severe pain give small amount of morphine for 3 days unrelated did have fall 3 days prior on ice, initially questioned if it was trauma causing the bleeding, imaging to not reveal any sig damage from the fall TODAY: the patient reports that he is continuing with abxthe patient is doing fine on the abx, metronidazole is causing stomach pain the patient reports that he is doing okay the patient reports he has a bruised, abrasion left ankle, lateral sidecan continue with bandaging itthe patient still has some mild pain of his left knee and left ankle painXR were negative for fracture, probable sprain no blood or mucus in the stool currently the patient has no other complications recommended fu colonoscopy as well per ER doc, referral placed CAROL CHACON [address] [place], [address], [facility] Internal Medicine 10/05/2024 12:34:31 02/05/20 25 text/htm l Care Management - HyperlipidemiaReported bypatient.Control:usually well controlled; improving; at goal Complications:no coronary artery disease; no heart attack; no cardiovascular disease; no pancreatitis; no strokeCare Management - HypertensionReported bypatient.Self Care:not under emotional stress Severity:symptoms are improving; does not interfere with daily activities Associated Symptoms:no dizziness; no lightheadedness; no chest pain; no shortness of breath; no palpitations; no edema; no calf muscle cramps; no blurred vision; no confusion; no headaches; no fatigue here for rechk and relates that he did good with the colonoscopy had a polyp but no other source of bleeding Reymundo Salazar DO [address] [place], [address], [facility] Internal Medicine 02/04/2025 09:40:01
[2025-02-08 13:31] LABS: MANUAL DIFF FLAG NO
[2025-02-08 13:36] LABS: Hematocrit 46.6 % (42.0-52.0); Hemoglobin 16.2 g/dl (14.0-18.0); Imm Gran Abs Auto 0.01 X10*3/uL (0.00-0.03); Imm Gran Pct Auto 0.2 % (0.0-0.4); Lymphocytes Absolute Auto 1.2 X10*3/uL (1.2-4.9); Mean Corpuscular HGB Conc 34.8 g/dl (31.0-36.0); Mean Corpuscular Hemoglobin 28.5 pg (27.0-33.0); Mean Corpuscular Volume 81.9 fL (80.0-98.0); NRBC Abs Auto 0.000 X10*3/uL (0.0-0.012); NRBC Pct Auto 0.0 /100WBC (0.0-0.2); Platelet Count 236 X10*3/uL (160-400); Red Blood Count 5.69 X10*6/uL (4.60-5.80); White Blood Count 4.6 X10*3/uL (4.8-10.8)
[2025-02-08 14:16] LABS: Prostate Specific Antigen 0.65 ng/mL (<0.05-4.0)
[2025-02-08 14:19] LABS: Alanine Aminotransferase 39 U/L (0-40); Albumin Level 4.4 g/dL (3.5-5.0); Alkaline Phosphatase 59 U/L (39-117); Anion Gap 11 (12-20); Aspartate Amino Transferase 31 U/L (5-37); Blood Urea Nitrogen 17 mg/dL (9-16); Calcium 9.0 mg/dL (8.4-10.2); Carbon Dioxide 26 mmol/L (22-29); Chloride 108 mmol/L (96-108); Cholesterol 201 mg/dL (<200); Estimated Glomerular Filt Rate > 60; HDL Cholesterol 34 mg/dL (>40); Potassium 4.2 mmol/L (3.3-5.1); Sodium 141 mmol/L (135-145); Total Protein 6.7 g/dL (6.5-8.0); Triglycerides 159 mg/dL (<150)
== END 2025-02-08 09:35 | disposition home or self-care (01) ==
LOC: HO.MANLDS 09:34
PROVIDERS: Visit Provider Internal Medicine
DX: E78.2 Mixed hyperlipidemia (principal)
CPT/HCPCS: 36415; 80053; 80061; 82306; 84153; 84403; 85025

== ENCOUNTER 2025-03-26 00:55 | Emergency (ER) | payer MEDICAID, SELFPAY ==
--- NOTE | ~2025-03-26 | XR_ITS ---
CLINICAL HISTORY: L rib pain, intense pain after coughing Left rib series with PA chest Comparison: None Findings: Cardiomediastinal silhouette is normal. Lungs are well aerated and clear. No pneumothorax or pleural effusion. No rib fractures. No osteoblastic or osteolytic lesions. Right shoulder arthroplasty Impression: 1. Normal chest with left rib films. This document has been electronically signed by: Ranulfo Guerrero MD on 03/26/2025 05:33:25
[2025-03-26 00:58] VITALS: BP 174/105; PULSE 90; RESP 20; TEMP 36.7; O2SAT 96; BMI 35.9
[2025-03-26 01:33] LABS: MANUAL DIFF FLAG NO
[2025-03-26 01:44] LABS: Hematocrit 44.5 % (42.0-52.0); Hemoglobin 15.6 g/dl (14.0-18.0); Imm Gran Abs Auto 0.02 X10*3/uL (0.00-0.03); Imm Gran Pct Auto 0.3 % (0.0-0.4); Lymphocytes Absolute Auto 1.8 X10*3/uL (1.2-4.9); Mean Corpuscular HGB Conc 35.1 g/dl (31.0-36.0); Mean Corpuscular Hemoglobin 28.8 pg (27.0-33.0); Mean Corpuscular Volume 82.1 fL (80.0-98.0); NRBC Abs Auto 0.000 X10*3/uL (0.0-0.012); NRBC Pct Auto 0.0 /100WBC (0.0-0.2); Platelet Count 221 X10*3/uL (160-400); Red Blood Count 5.42 X10*6/uL (4.60-5.80); White Blood Count 5.9 X10*3/uL (4.8-10.8)
[2025-03-26 01:52] LABS: Alanine Aminotransferase 47 U/L (0-40); Albumin Level 4.4 g/dL (3.5-5.0); Alkaline Phosphatase 81 U/L (39-117); Anion Gap 18 (12-20); Aspartate Amino Transferase 41 U/L (5-37); Blood Urea Nitrogen 14 mg/dL (9-16); Calcium 9.1 mg/dL (8.4-10.2); Carbon Dioxide 24 mmol/L (22-29); Chloride 105 mmol/L (96-108); Creatinine Clr Calc Pharmacy 81.9; Estimated Glomerular Filt Rate > 60; Potassium 4.1 mmol/L (3.3-5.1); Sodium 143 mmol/L (135-145); Total Protein 6.9 g/dL (6.5-8.0)
[2025-03-26 02:46] VITALS: BP 142/86; PULSE 75; RESP 18; TEMP 36.7; O2SAT 97
--- NOTE | 2025-03-26 04:31 | ED.GENADULT ---
HPI - General Adult General Chief complaint: Abdominal Pain Stated complaint: left said back pain Time Seen by Provider: 03/26/25 04:25 Source: patient Mode of arrival: ambulatory Limitations: no limitations History of Present Illness ED Provider: Dr. Fatemeh Cifuentes HPI narrative: Patient comes to the emergency room complaining of left-sided rib pain/flank pain. Patient states that he was sitting down, started coughing and sneezed, since then he felt a pop in his lower ribs and since then he has been having localized pain. Patient denies radiation to the abdomen or to the groin on the left. Patient states that he took prescribed medication without any relief. Denies hematuria or dysuria, denies fever chills. Patient states that it is worse with deep inspirations. Patient states that as long as he stays still, he has no pain. However, if he moves a certain way, that triggers the pain. Patient states that he has had kidney stones before and this is not the same, kidney stones were much worse. Related Data Previous Rx's ?Medication ?Instructions ?Recorded amoxicillin 875 mg-potassium 1 tab PO Q12H 7 days #14 tabs 09/30/24 clavulanate 125 mg tablet metronidazole 500 mg tablet 500 mg PO TID 7 days #21 tabs 09/30/24 morphine 15 mg immediate release 15 mg PO Q6H PRN pain #14 tabs 09/30/24 tablet cyclobenzaprine 5 mg tablet 5 mg PO TID PRN muscle spasm #10 03/26/25 tabs ketorolac 10 mg tablet 10 mg PO Q8H PRN pain #12 tabs 03/26/25 Allergies Allergy/AdvReac Type Severity Reaction Status Date / Time No Known Allergies Allergy Verified 03/26/25 01:02 [facility] Social History Social History Smoked in Last 30 Days: No Use of substances other than those prescribed or required for medical reasons: No Advance Directives: No Advance Directives Information Provided: Yes Physical Exam ED Exam Exam: Appearance: Alert. Oriented X3. No acute distress. Eyes: Pupils equal, round and reactive to light. ENT: Pharynx normal. Neck: Normal inspection. Neck supple. No lymph nodes noted. No crepitus CVS: Normal heart rate and rhythm. Pulses normal. Normal S1 and S2 Respiratory: No respiratory distress. Breath sounds normal. No Wheezing. No rales Abdomen: Soft and nontender. No rigidity. No distention. Musculoskeletal: Reproducible pain to palpation on the left side of the ribs, no CVA tenderness Skin: Skin warm and dry. Normal skin color. Normal skin turgor. Extremities: No lower extremity edema. No Lacerations. No Rash Neuro: Oriented X 3. No motor deficit. No sensory deficit. Moving all extremities. No slurred speech. CN 2 through 12 grossly intact Psych: calm, cooperative, normal affect Vital Signs: Vital Signs - 24 hr 03/26/25 00:58 03/26/25 02:46 03/26/25 05:24 Temperature 98.0 F 98.0 F 97.7 F Pulse Rate 90 75 75 Respiratory Rate 20 18 18 Blood Pressure 174/105 H 142/86 H 135/83 Pulse Oximetry 96 97 95 Oxygen Delivery Method Room Air Room Air Room Air BMI result Body Mass Index 35.9 Course Course Course Narrative: Patient complaining of left-sided rib pain/flank pain after sneezing. Worse with bone, no pain at rest. Patient denies hematuria dysuria. All of patient's labs and imaging pending Medical Decision Making Medical Decision Making [facility] Narrative: My interpretation of labs: No significant abnormality in patient's hematology and chemistry, urinalysis negative for blood or UTI Rib and chest x-ray negative for rib fractures or any acute findings. I discussed the above-mentioned with the patient, patient likely has a musculoskeletal injury, pulled muscle versus ligament. I considered getting a CT scan to rule out ureterolithiasis. However, patient's urine is negative for blood and patient only has pain with movement, indicating that this may most likely be a musculoskeletal injury Patient was given IM Toradol in the emergency room. Patient is driving, muscle relaxants will be sent to the patient's pharmacy. Patient agrees with plan Differential Diagnosis Differential Diagnoses: The differential diagnosis associated with the presentation includes (Rib fracture, pneumothorax, ureterolithiasis, nephrolithiasis, musculoskeletal pain) Admission/Observation Consideration of admission/observation: Escalation of care including admission/observation considered (Given patient's initial presentation, observation was considered) Lab Data [facility] Lab Attestation statement: I reviewed the patient's lab results. 03/26/25 01:30 03/26/25 01:30 Labs: Lab Results 03/26/25 03/26/25 Range/Units 01:30 04:38 WBC 5.9 (4.8-10.8) X10*3/uL RBC 5.42 (4.60-5.80) X10*6/uL Hgb 15.6 (14.0-18.0) g/dl Hct 44.5 (42.0-52.0) % MCV 82.1 (80.0-98.0) fL MCH 28.8 (27.0-33.0) pg MCHC 35.1 (31.0-36.0) g/dl RDW 13.0 (11.0-16.0) % Plt Count 221 (160-400) X10*3/uL MPV 10.5 (9.4-12.4) fL Immature Gran % (Auto) 0.3 (0.0-0.4) % Neut % (Auto) 59.8 (45-73) % Lymph % (Auto) 30.4 (20-40) % [place] % (Auto) 6.8 (2-11) % Eos % (Auto) 2.4 (0-4) % Baso % (Auto) 0.3 (0-2) % Lymph # (Auto) 1.8 (1.2-4.9) X10*3/uL [place] # (Auto) 0.4 (0.1-1.2) X10*3/uL Eos # (Auto) 0.1 (0.0-0.4) X10*3/uL Baso # (Auto) 0.0 (0.0-0.2) X10*3/uL Abs Immat Gran (auto) 0.02 (0.00-0.03) X10*3/uL Absolute Neuts (auto) 3.5 (2.0-8.3) x10*3/uL Absolute Nucleated RBC 0.000 (0.0-0.012) X10*3/uL Nucleated RBC % (auto) 0.0 (0.0-0.2) /100WBC Sodium 143 (135-145) mmol/L Potassium 4.1 (3.3-5.1) mmol/L Chloride 105 (96-108) mmol/L Carbon Dioxide 24 (22-29) mmol/L Anion Gap 18 (12-20) BUN 14 (9-16) mg/dL Creatinine 1.16 (0.5-1.4) mg/dL Estim Creat Clear Calc 81.9 Estimated GFR > 60 Random Glucose 127 H (60-115) mg/dL Calcium 9.1 (8.4-10.2) mg/dL Total Bilirubin 0.3 (0.0-1.0) mg/dL AST 41 H (5-37) U/L ALT 47 H (0-40) U/L Alkaline Phosphatase 81 (39-117) U/L Total Protein 6.9 (6.5-8.0) g/dL Albumin 4.4 (3.5-5.0) g/dL Urine Color Yellow Urine Appearance Clear Urine pH 5.5 (5.0-9.0) Ur Specific [place] 1.025 (1.005-1.025) Urine Protein Negative (Neg-Trace) mg/dL Urine Glucose (UA) Negative (Negative) mg/dL Urine Ketones Trace (Negative) mg/dL Urine Blood Negative (Negative) Urine Nitrite Negative (Negative) Ur Leukocyte Esterase Negative (Negative) Urine RBC 0-2 (0-2) /HPF Urine WBC 0-5 (0-5) /HPF Ur Squamous Epith Cells 0-2 (0-2) /HPF Urine Bacteria None Seen (None Seen) Hyaline Casts 0-2 (0-2) /LPF Independent Interpretation I performed an independent interpretation of an: Plain X-Ray Radiology Impression Discussion of test interpretation with radiology: I have reviewed the radiologist's reading. Radiologist Impression: Cardiomediastinal silhouette is normal. Lungs are well aerated and clear. No pneumothorax or pleural effusion. No rib fractures. No osteoblastic or osteolytic lesions. Right shoulder arthroplasty Impression: 1. Normal chest with left rib films. Critical Care Time Critical Care Time Critical Care Time: Yes Total Critical Care Time: 35 Attestation: I have personally provided critical care time. Time includes review of lab data, radiology results, discussion with consultants, and monitoring for potential decompensation. Intervention performed as documented. Discharge Plan Discharge Clinical Impression: Musculoskeletal pain Patient Disposition: Home, Self-Care Instructions: Musculoskeletal Pain (ED) Additional Instructions: Please follow-up with your primary care physician tomorrow. If you have any worsening or new symptoms, please return to the emergency room or call 911 Prescriptions: New ketorolac 10 mg tablet 10 mg PO Q8H PRN (Reason: pain) Qty: 12 0RF Rx Instructions: With other NSAIDs, only Tylenol if needed cyclobenzaprine 5 mg tablet 5 mg PO TID PRN (Reason: muscle spasm) Qty: 10 0RF No Action metronidazole 500 mg tablet 500 mg PO TID 7 Days Qty: 21 0RF morphine 15 mg tablet 15 mg PO Q6H PRN (Reason: pain) Qty: 14 0RF Rx Instructions: Patient may request partial fill; Partial Fill upon patient request. amoxicillin-pot clavulanate 875-125 mg tablet 1 tab PO Q12H 7 Days Qty: 14 0RF Stand Alone Forms: Work/School Release Print Language: Algerian
[2025-03-26 04:48] LABS: Appearance Urine Clear; Glucose Urine UA Negative (Negative); PH 5.5 (5.0-9.0); Specific Gravity - Urine 1.025 (1.005-1.025)
[2025-03-26 05:24] VITALS: BP 135/83; PULSE 75; RESP 18; TEMP 36.5; O2SAT 95
--- NOTE | 2025-03-26 06:09 | PC.NURSE ---
Reviewed discharge instructions with pt. pt verbalized understanding, no sign of distress, medicated before discharge.
[2025-03-26 06:10] VITALS: BP 135/83; PULSE 75; RESP 18; TEMP 36.5; O2SAT 95
== END 2025-03-26 06:11 | disposition home or self-care (01) ==
PROVIDERS: Emergency Provider Emergency Medicine; PCP Internal Medicine
DX: M79.18 Myalgia, other site (principal); M54.9 Dorsalgia, unspecified; R10.32 Left lower quadrant pain
CPT/HCPCS: 36415; 71101; 80053; 81001; 85025; 99284; J1885

== ENCOUNTER → 2025-03-26 04:30 | Outpatient (BNV) | payer MEDICAID, SELFPAY | PROVIDERS: Emergency Provider Emergency Medicine; PCP Internal Medicine; Visit Provider Radiology Diagnostic Radiology | DX: R07.89 Other chest pain (principal) | CPT/HCPCS: 71101 ==

== ENCOUNTER 2025-04-01 23:57 | Emergency (ER) | payer MEDICAID, SELFPAY ==
[2025-04-02 00:02] VITALS: BP 176/108; PULSE 88; RESP 18; TEMP 36.8; O2SAT 95; BMI 35.2
--- NOTE | 2025-04-02 02:00 | MHC.EDTECH ---
@[phone] Called patient to be roomed, no answer. Informed by check in patient recently got up and left
== END 2025-04-02 02:11 | disposition left against medical advice (07) ==
PROVIDERS: Emergency Provider Emergency Medicine
DX: R10.2 Pelvic and perineal pain (principal)
CPT/HCPCS: 99281